=== PATIENT | female | born 1965 | race Caucasian/White ===

== ENCOUNTER 2016-08-18 19:28 | Emergency (ER) | payer MEDICAID | END 2016-08-18 21:35 | disposition home or self-care (01) | LOC: ER1 19:28 | DX: S39.012A Strain of muscle, fascia and tendon of lower back, initial encounter (principal); W01.0XXA Fall on same level from slipping, tripping and stumbling without subsequent striking against object, initial encounter; Y92.512 Supermarket, store or market as the place of occurrence of the external cause | CPT/HCPCS: 70450; 71010; 72100; 72125; 72170; 82962; 96374; 99284; J1885 ==

== ENCOUNTER 2020-07-28 09:31 | Emergency (ER) | payer OTHER ==
[~2020-07-28 09:31] MED LIST: AUGMENTIN 875-1 EACH PO; DIFLUCAN100 MG PO; DIFLUCAN150 MG PO; Voltaren Gel 1 % TOP
[2020-07-28] MEDS ORDERED: IBUPROFEN600 MG PO (11:48)
== END 2020-07-28 12:33 | disposition home or self-care (01) ==
LOC: ER1 09:31
DX: J02.9 Acute pharyngitis, unspecified (principal); M72.2 Plantar fascial fibromatosis
CPT/HCPCS: 73630; 87081; 87880; 99283

== ENCOUNTER 2020-09-22 10:56 | Emergency (ER) | payer OTHER ==
[~2020-09-22 10:56] MED LIST changes: +IBUPROFEN600 MG PO
== END 2020-09-22 12:07 | disposition left against medical advice (07) ==
LOC: ER1 10:56
DX: Z53.21 Procedure and treatment not carried out due to patient leaving prior to being seen by health care provider (principal)

== ENCOUNTER 2021-10-14 18:12 | Emergency (ER) | payer OTHER ==
[2021-10-14 19:19] LABS: RED BLOOD COUNT 5.3 M/UL (4.00-5.10)
[2021-10-14 19:30] LABS: BUN/CREATININE RATIO 41 (0-10)
== END 2021-10-14 20:30 | disposition home or self-care (01) ==
LOC: ER1 18:12
PROVIDERS: Physician Assistant
DX: R07.89 Other chest pain (principal); E11.9 Type 2 diabetes mellitus without complications; E78.5 Hyperlipidemia, unspecified; J44.9 Chronic obstructive pulmonary disease, unspecified; I10 Essential (primary) hypertension; Z51.81 Encounter for therapeutic drug level monitoring
CPT/HCPCS: 71045; 80053; 81001; 82550; 82553; 83880; 84484; 85025; 85610; 85730; 93005; 99285